=== PATIENT | male | born 1995 ===

== ENCOUNTER 2018-09-29 05:05 | Emergency (ER) | payer OTHER ==
[2018-09-29] MEDS ORDERED: NS 1,000 ML IV ONE ×4 (05:16→07:02)
[2018-09-29] MEDS ORDERED: ONDANSETRON 4 MG/2 ML VIAL IVP ONE (05:16)
--- NOTE | 2018-09-29 05:16 | EDPHY ---
H & P Stated Complaint: N/V/D X 1 DAY Time Seen by Provider: 09/29/18 05:16 HPI/ROS: HPI CHIEF COMPLAINT: Nausea vomiting and diarrhea. HISTORY OF PRESENT ILLNESS: 23-year-old male presents emergency room nausea vomiting diarrhea. Patient states on Tuesday night he returned home from [place] to his mom's house. His mom makes very good food he ate a rather large amount of this. He states that he got GI upset abdominal pain upset with this with abdominal cramping and had some discomfort throughout Tuesday night , morning. Did get somewhat better . However last night his pain returned rather crampy, lower abdomen, with associated nausea and vomiting. Patient states he vomited approximately 4-5 times. Also had watery diarrhea. However complains of progressively worsening lower abdominal pain mainly in his right lower quadrant. The patient has not had a fever. Patient denies any chest pain or shortness Of breath. Past Medical History: Denies significant medical history Past Surgical History:nasal surgery Social History: Denies drugs alcohol tobacco. Student. [employer]. Home for the holidays. Family History: Noncontributory ROS REVIEW OF SYSTEMS: 10 Systems were reviewed and negative with the exception of the elements mentioned in the history of present illness. Exam Constitutional appears well nontoxic no acute distress, triage nursing summary reviewed, vital signs reviewed, awake/alert. Patient's vital signs noted to be tachycardic at triage 151. However upon arrival back to ER room 14 his heart rate is 111. Patient's heart rate noted to be at triage 151 however he was actively vomiting during this time in triage. Eyes normal conjunctivae and sclera, EOMI, PERRLA. HENT normal inspection, atraumatic, moist mucus membranes, no epistaxis, neck supple/ no meningismus, no raccoon eyes. Respiratory clear to auscultation bilaterally, normal breath sounds, no respiratory distress, no wheezing. Cardiovascular rate normal, regular rhythm, no murmur, no edema, distal pulses normal. Gastrointestinal mild tender palpation right lower quadrant, no rebound, no guarding, normal bowel sounds, no distension, no pulsatile mass. Genitourinary no CVA tenderness. Musculoskeletal no midline vertebral tenderness, full range of motion, no calf swelling, no tenderness of extremities, no meningismus, good pulses, neurovascularly intact. Skin pink, warm, & dry, no rash, skin atraumatic. Neurologic awake, alert and oriented x 3, AAOx3, moves all 4 extremities equally, motor intact, sensory intact, CN II-XII intact, normal cerebellar, normal vision, normal speech. Psychiatric normal mood/affect. Heme/Lymph/Immune no lymphadenopathy. Differential diagnosis includes but is not limited to and in no particular order : Bowel obstruction, appendicitis, gallbladder disease, diverticulitis, colitis , enteritis, perforated viscus, gastritis, GERD, esophagitis, urinary tract infection, pyelonephritis, kidney stones Medical Decision Making: Plan for this patient IV establishment with IV fluid bolus, 2 L, IV Zofran for nausea, pain medicine as needed, check basic blood work, electrolytes, urine, CT scan abdomen pelvis with IV contrast rule out acute appendicitis. Re-evaluation: CT scan abdomen pelvis with IV contrast normal appendix visualized. However small-bowel loops fluid-filled consistent with enteritis. Called to me by Dr. Coats. 0702AM: Patient re-evaluated this time is resting comfortably in no acute distress. Patient is feeling better he has had 2 L of fluid. He p.o. Challenge well. Plan will be for 3rd L fluid. CT scan reviewed shows enteritis Return precautions discussed with the patient he understands return emergency room develops worsening abdominal pain, fever, vomiting. No evidence of appendicitis on this CT scan. Patient will receive 1/3 L fluid after this is completed he can be discharged home. He feels well. Abdomen nontender. Return precautions discussed. Source: Patient - Personal History Current Tetanus Diphtheria and Acellular Pertussis (TDAP): Yes - Medical/Surgical History Hx Asthma: No Hx Chronic Respiratory Disease: No Hx Diabetes: No Hx Cardiac Disease: No Hx Renal Disease: No Hx Cirrhosis: No Hx Alcoholism: No Hx HIV/AIDS: No Hx Splenectomy or Spleen Trauma: No Other PMH: BROKEN NOSE - Social History Smoking Status: Never smoked Constitutional: Initial Vital Signs Temperature (C) 36.9 C 09/29/18 05:09 Heart Rate 151 H 09/29/18 05:09 Respiratory Rate 16 09/29/18 05:09 Blood Pressure 101/90 H 09/29/18 05:09 O2 Sat (%) 95 09/29/18 05:09 O2 Delivery Mode Room Air Allergies/Adverse Reactions: amoxicillin [Amoxicillin] Allergy (Verified 08/29/13 22:42) Home Medications: Medication Instructions Recorded Promethazine HCl 25 mg PO Q6-8PRN PRN #10 tablet 09/29/18 Medical Decision Making - Diagnostics Imaging Results: Imaging Impressions Abdomen CT 09/29/18 05:24 Impression: Fluid-filled loops of small bowel with mild bowel wall thickening in the jejunum. Differential includes enteritis. Less likely consideration would be inflammatory bowel disease. No CT findings for appendicitis. Results called and discussed with Prakash Nevarez MD on 09/29/2018 at 0623 hours. Final interpretation concurs with initial preliminary educational therapy teacher radiologist impression. - Data Points Laboratory Results: Laboratory Results 09/29/18 05:28 09/29/18 05:28 Medications Given: Discontinued Medications Acetaminophen (Tylenol) 1,000 mg PO EDNOW ONE Stop: 09/29/18 06:24 Last Admin: 09/29/18 06:23 Dose: 1,000 mg Sodium Chloride (Ns) 1,000 mls @ 0 mls/hr IV EDNOW ONE; Wide Open PRN Reason: Protocol Stop: 09/29/18 05:17 Last Admin: 09/29/18 05:24 Dose: 1,000 mls Sodium Chloride (Ns) 1,000 mls @ 0 mls/hr IV EDNOW ONE; Wide Open PRN Reason: Protocol Stop: 09/29/18 05:17 Last Admin: 09/29/18 05:24 Dose: 1,000 mls Sodium Chloride (Ns) 1,000 mls @ 0 mls/hr IV ONCE ONE PRN Reason: Wide Open Stop: 09/29/18 07:01 Last Admin: 09/29/18 07:16 Dose: 1,000 mls Sodium Chloride (Ns) 1,000 mls @ 0 mls/hr IV ONCE ONE PRN Reason: Wide Open Stop: 09/29/18 07:03 Last Admin: 09/29/18 07:04 Dose: Not Given Ondansetron HCl (Zofran) 4 mg IVP EDNOW ONE Stop: 09/29/18 05:17 Last Admin: 09/29/18 05:24 Dose: 4 mg Departure - Departure Disposition: Home, Routine, Self-Care Clinical Impression: Abdominal pain Qualifiers: Abdominal location: generalized Qualified Code(s): R10.84 - Generalized abdominal pain Nausea and vomiting Qualifiers: Vomiting type: unspecified Vomiting Intractability: non-intractable Qualified Code(s): R11.2 - Nausea with vomiting, unspecified Diarrhea Qualifiers: Diarrhea type: unspecified type Qualified Code(s): R19.7 - Diarrhea, unspecified Condition: Good Instructions: Acute Nausea and Vomiting (ED), Acute Diarrhea (ED), Abdominal Pain (ED) Additional Instructions: 1. Presto diet over the next 24-48 hours no spicy fatty greasy foods. 2. Return emergency room if continue have been vomiting worsening abdominal pain , fever Referrals: CHAGO FIERRO [Primary Care Provider] - As per Instructions Patt Yepez MD [Medical Doctor] - As per Instructions Prescriptions: Promethazine HCl 25 mg PO Q6-8PRN PRN #10 tablet PRN Reason: Nausea/Vomiting, Use 1st
[2018-09-29 05:32] LABS: PLATELET COUNT 249 10^3/uL (150-400)
[2018-09-29] MEDS ORDERED: IOPAMIDOL (ISOVUE-300) 100 ML BTL ONE (05:53)
[2018-09-29] MEDS ORDERED: ACETAMINOPHEN 500 MG TAB ONE (06:21)
[2018-09-29] MEDS ORDERED: ACETAMINOPHEN 500 MG TAB PO ONE (06:23)
[2018-09-29 09:28] VITALS: BP 122/69
== END 2018-09-29 09:55 | disposition home or self-care (01) ==
DX: R10.84 Generalized abdominal pain (principal); R11.2 Nausea with vomiting, unspecified; R19.7 Diarrhea, unspecified; E86.9 Volume depletion, unspecified
CPT/HCPCS: 96374; J2405; Q9967